=== PATIENT | female | born 1930 | race Caucasian/White ===

== ENCOUNTER → 2018-03-30 | Outpatient (CLI) | payer OTHER | LOC: CFH 10:55 | PROVIDERS: ATTEND Nurse Practitioner Family | DX: M19.042 Primary osteoarthritis, left hand (principal) ==

== ENCOUNTER 2018-04-08 16:47 | Inpatient (IN) | payer OTHER ==
[~2018-04-08] VITALS: Ht 162.6 cm; Wt 49.4 kg
[2018-04-08] MEDS ORDERED: DIPHENHYDRAMINE 50 MG/ML, 1ML IVPush ONE (18:00)
[2018-04-08] MEDS ORDERED: methylPREDNISolone SOD SUCC 125 MG/2 ML IVPush ONE (18:00)
[2018-04-08 18:14] LABS: MEAN CORPUSCULAR HEMOGLOBIN 29.2 pg (27.0-34.8); MEAN CORPUSCULAR HGB CONC 33.3 g/dL (32.4-35.8); MEAN CORPUSCULAR VOLUME 87.7 fL (80-100); MEAN PLATELET VOLUME 7.4 fL (7.4-10.4); PLATELET COUNT 152 x10^3/uL (130-400); RED BLOOD COUNT 5.18 x10^6/uL (3.82-5.3); RED CELL DISTRIBUTION WIDTH 15.5 % (9.6-15.2)
[2018-04-08] MEDS ORDERED: LASIX (18:17)
[2018-04-08] MEDS ORDERED: WARF2.5T73 PO (18:17)
[2018-04-08] MEDS ORDERED: WARF10TA43 PO (18:17)
[2018-04-08] MEDS ORDERED: PRAV40TA2 PO (18:17)
[2018-04-08 18:23] LABS: INTERNATIONAL NORMALIZED RATIO 4.29 (0.93-1.1); PROTHROMBIN TIME 43.4 Seconds (9.6-11.5)
[2018-04-08 18:25] LABS: ALANINE AMINOTRANSFERASE 25 U/L (12-78); ALBUMIN 3.3 g/dL (3.4-5.0); ANION GAP 8 mmol/L (5-15); CALCIUM 8.4 mg/dL (8.5-10.1); CHLORIDE 102 mmol/L (98-107); CREATININE 1.28 mg/dL (0.55-1.02)
[2018-04-08 18:29] LABS: ALKALINE PHOSPHATASE 87 U/L (45-117); BILIRUBIN,TOTAL 0.6 mg/dL (0.2-1.0); TOTAL PROTEIN 7.2 g/dL (6.4-8.2); TROPONIN I < 0.015 ng/mL (0.000-0.045)
[2018-04-08] MEDS ORDERED: VERAPAMIL 2.5 MG/ML, 2ML IVPush ONE (18:30)
[2018-04-08] MEDS ORDERED: methylPREDNISolone SOD SUCC 125 MG/2 ML ONE (18:45)
[2018-04-08] MEDS ORDERED: ACETAMINOPHEN 500 MG TABLET ONE (18:45)
[2018-04-08] MEDS ORDERED: DIPHENHYDRAMINE 50 MG/ML, 1ML ONE (18:45)
[2018-04-08] MEDS ORDERED: VERAPAMIL 2.5 MG/ML, 2ML ONE (18:45)
[2018-04-08 18:48] LABS: BASOPHILS # (AUTO) 0.01 x10^3/uL (0-0.1); BASOPHILS % (AUTO) 0 % (0-1); EOSINOPHILS # (AUTO) 0.17 x10^3/uL (0-0.4); EOSINOPHILS % (AUTO) 2 % (1-7); LYMPHOCYTES # (AUTO) 0.55 x10^3/uL (1-3.4); LYMPHOCYTES % (AUTO) 7 % (22-44); MD SCAN; MONOCYTES # (AUTO) 0.48 x10^3/uL (0.2-0.8); MONOCYTES % (AUTO) 6 % (2-9); NEUTROPHILS # (AUTO) 6.82 x10^3/uL (1.8-6.8); NEUTROPHILS % (AUTO) 85 % (42-75)
[2018-04-08] MEDS ORDERED: ACETAMINOPHEN 500 MG TABLET PO ONE (19:00)
[2018-04-08] MEDS ORDERED: SODIUM CHLORIDE FLUSH 10ML SYR IVF PRN (19:30)
[2018-04-08 19:31] LABS: MICROSCOPIC INDICATED
[2018-04-08 19:43] LABS: CULTURE INDICATED? NO
[2018-04-08] MEDS: SODIUM CHLORIDE 0.9% 1,000 ML IV SCH (20:17)
[2018-04-08] MEDS ORDERED: BISACODYL 10 MG SUPP PR PRN (20:30)
[2018-04-08] MEDS ORDERED: POLYETHYLENE GLYCOL 17 GM PACKET PO PRN (20:30)
[2018-04-08] MEDS ORDERED: ONDANSETRON 2MG/ML, 2ML IVPush PRN (20:30)
[2018-04-08] MEDS: FAMOTIDINE 20 MG TABLET PO SCH (22:46)
[2018-04-08 22:48] VITALS: BP 107/61
[2018-04-09 01:07] VITALS: BP 111/74
[2018-04-09 05:53] LABS: INTERNATIONAL NORMALIZED RATIO 3.36 (0.93-1.1); PROTHROMBIN TIME 34.1 Seconds (9.6-11.5)
[2018-04-09 05:54] VITALS: BP 156/84
[2018-04-09 05:58] LABS: ALANINE AMINOTRANSFERASE 22 U/L (12-78); ALBUMIN 2.7 g/dL (3.4-5.0); ANION GAP 7 mmol/L (5-15); CALCIUM 8.2 mg/dL (8.5-10.1); CHLORIDE 108 mmol/L (98-107); CREATININE 0.79 mg/dL (0.55-1.02)
[2018-04-09 06:03] LABS: ALKALINE PHOSPHATASE 64 U/L (45-117); BASOPHILS # (AUTO) 0.01 x10^3/uL (0-0.1); BASOPHILS % (AUTO) 0 % (0-1); BILIRUBIN,TOTAL 0.7 mg/dL (0.2-1.0); EOSINOPHILS % (AUTO) 0 % (1-7); LYMPHOCYTES # (AUTO) 0.47 x10^3/uL (1-3.4); LYMPHOCYTES % (AUTO) 14 % (22-44); MD NO; MEAN CORPUSCULAR HGB CONC 33.5 g/dL (32.4-35.8); MEAN CORPUSCULAR VOLUME 86.7 fL (80-100); MEAN PLATELET VOLUME 7.7 fL (7.4-10.4); MONOCYTES # (AUTO) 0.13 x10^3/uL (0.2-0.8); MONOCYTES % (AUTO) 4 % (2-9); NEUTROPHILS # (AUTO) 2.68 x10^3/uL (1.8-6.8); NEUTROPHILS % (AUTO) 82 % (42-75); PLATELET COUNT 131 x10^3/uL (130-400); RED BLOOD COUNT 4.54 x10^6/uL (3.82-5.3); RED CELL DISTRIBUTION WIDTH 15.3 % (9.6-15.2); TROPONIN I < 0.015 ng/mL (0.000-0.045)
[2018-04-09 06:49] VITALS: BP 129/78
[2018-04-09] MEDS: SODIUM CHLORIDE 0.9% 1,000 ML IV SCH ×2 (08:26→20:53)
[2018-04-09] MEDS: SENNA/DOCUSATE TABLET PO SCH (08:26)
[2018-04-09] MEDS: FAMOTIDINE 20 MG TABLET PO SCH ×2 (08:26→20:53)
[2018-04-09 11:13] LABS: TROPONIN I < 0.015 ng/mL (0.000-0.045)
[2018-04-09] MEDS: DIPHENHYDRAMINE 25 MG CAPSULE PO PRN ×2 (12:32→20:53)
[2018-04-09 13:57] VITALS: BP 97/58
[2018-04-09] MEDS: CLINDAMYCIN 300 MG CAPSULE PO SCH ×2 (14:09→20:53)
[2018-04-09] MEDS: METOPROLOL TARTRATE 25 MG TABLET PO SCH (17:38)
[2018-04-09 17:39] VITALS: BP 101/64
[2018-04-09 19:25] VITALS: BP 102/59
[2018-04-10 01:51] VITALS: BP 115/75
[2018-04-10] MEDS: ACETAMINOPHEN 325 MG TABLET PO PRN ×2 (02:02→21:15)
[2018-04-10] MEDS: CLINDAMYCIN 300 MG CAPSULE PO SCH ×4 (02:02→20:10)
[2018-04-10] MEDS: METOPROLOL TARTRATE 25 MG TABLET PO SCH ×2 (04:48→17:41)
[2018-04-10 05:10] LABS: BASOPHILS # (AUTO) 0.01 x10^3/uL (0-0.1); BASOPHILS % (AUTO) 0 % (0-1); CHLORIDE 113 mmol/L (98-107); EOSINOPHILS # (AUTO) 0.22 x10^3/uL (0-0.4); EOSINOPHILS % (AUTO) 2 % (1-7); LYMPHOCYTES % (AUTO) 17 % (22-44); MD NO; MEAN CORPUSCULAR HGB CONC 32.9 g/dL (32.4-35.8); MEAN CORPUSCULAR VOLUME 88.2 fL (80-100); MEAN PLATELET VOLUME 7.3 fL (7.4-10.4); MONOCYTES # (AUTO) 0.85 x10^3/uL (0.2-0.8); MONOCYTES % (AUTO) 9 % (2-9); NEUTROPHILS # (AUTO) 6.54 x10^3/uL (1.8-6.8); NEUTROPHILS % (AUTO) 71 % (42-75); PLATELET COUNT 150 x10^3/uL (130-400); RED BLOOD COUNT 4.46 x10^6/uL (3.82-5.3); RED CELL DISTRIBUTION WIDTH 15.4 % (9.6-15.2)
[2018-04-10 05:22] LABS: ALANINE AMINOTRANSFERASE 32 U/L (12-78); ALBUMIN 2.7 g/dL (3.4-5.0); ALKALINE PHOSPHATASE 57 U/L (45-117); ANION GAP 6 mmol/L (5-15); BILIRUBIN,TOTAL 0.7 mg/dL (0.2-1.0); CALCIUM 8.2 mg/dL (8.5-10.1); TOTAL PROTEIN 5.9 g/dL (6.4-8.2)
[2018-04-10 06:52] LABS: INTERNATIONAL NORMALIZED RATIO 2.59 (0.93-1.1); PROTHROMBIN TIME 26.4 Seconds (9.6-11.5)
[2018-04-10 07:30] VITALS: BP 153/76
[2018-04-10] MEDS: FAMOTIDINE 20 MG TABLET PO SCH ×2 (08:01→20:10)
[2018-04-10] MEDS: SENNA/DOCUSATE TABLET PO SCH (08:01)
[2018-04-10] MEDS: SODIUM CHLORIDE 0.9% 1,000 ML IV SCH (10:27)
[2018-04-10 12:39] LABS: TROPONIN I 0.019 ng/mL (0.000-0.045)
[2018-04-10] MEDS ORDERED: FUROSEMIDE 20 MG/2 ML ONE (12:39)
[2018-04-10] MEDS: METOPROLOL 1 MG/ML, 5ML IVPush PRN ×2 (13:22→13:25)
[2018-04-10] MEDS ORDERED: DILTIAZEM 5 MG/ML, 5ML IVPush ONE (13:30)
[2018-04-10 13:49] VITALS: BP 130/81
[2018-04-10 13:58] LABS: LDL/HDL RATIO 1.9 (0.5-3.0)
[2018-04-10] MEDS: FUROSEMIDE 20 MG/2 ML IV SCH (16:49)
[2018-04-10] MEDS ORDERED: FUROSEMIDE 20 MG/2 ML IV SCH (17:00)
[2018-04-10] MEDS ORDERED: WARFARIN 5 MG TABLET PO-COUM ONE (18:00)
[2018-04-10 18:34] LABS: TROPONIN I 0.081 ng/mL (0.000-0.045)
[2018-04-10 19:34] VITALS: BP 112/66
[2018-04-11] VITALS (7 sets, daily range): BP systolic 87–107; BP diastolic 48–88
[2018-04-11] MEDS: CLINDAMYCIN 300 MG CAPSULE PO SCH ×3 (02:00→17:57)
[2018-04-11] MEDS: METOPROLOL TARTRATE 25 MG TABLET PO SCH ×3 (06:23→20:15)
[2018-04-11] MEDS: SENNA/DOCUSATE TABLET PO SCH (09:00)
[2018-04-11 09:37] LABS: BASOPHILS # (AUTO) 0.03 x10^3/uL (0-0.1); BASOPHILS % (AUTO) 0 % (0-1); EOSINOPHILS # (AUTO) 0.04 x10^3/uL (0-0.4); EOSINOPHILS % (AUTO) 0 % (1-7); LYMPHOCYTES # (AUTO) 0.99 x10^3/uL (1-3.4); LYMPHOCYTES % (AUTO) 10 % (22-44); MD NO; MEAN CORPUSCULAR HEMOGLOBIN 29.1 pg (27.0-34.8); MEAN CORPUSCULAR HGB CONC 33.3 g/dL (32.4-35.8); MEAN CORPUSCULAR VOLUME 87.5 fL (80-100); MEAN PLATELET VOLUME 7.5 fL (7.4-10.4); MONOCYTES # (AUTO) 0.84 x10^3/uL (0.2-0.8); MONOCYTES % (AUTO) 8 % (2-9); NEUTROPHILS # (AUTO) 8.38 x10^3/uL (1.8-6.8); NEUTROPHILS % (AUTO) 82 % (42-75); PLATELET COUNT 196 x10^3/uL (130-400); RED BLOOD COUNT 4.88 x10^6/uL (3.82-5.3); RED CELL DISTRIBUTION WIDTH 15.1 % (9.6-15.2)
[2018-04-11 09:47] LABS: ALANINE AMINOTRANSFERASE 57 U/L (12-78); ANION GAP 8 mmol/L (5-15); CALCIUM 8.4 mg/dL (8.5-10.1); CHLORIDE 103 mmol/L (98-107); CREATININE 0.83 mg/dL (0.55-1.02)
[2018-04-11 09:52] LABS: ALKALINE PHOSPHATASE 86 U/L (45-117); BILIRUBIN,TOTAL 1.1 mg/dL (0.2-1.0); TROPONIN I 0.072 ng/mL (0.000-0.045)
[2018-04-11] MEDS: FUROSEMIDE 20 MG/2 ML IV SCH ×2 (09:55→17:57)
[2018-04-11] MEDS: FAMOTIDINE 20 MG TABLET PO SCH ×2 (09:55→20:15)
[2018-04-11 10:53] LABS: INTERNATIONAL NORMALIZED RATIO 3.23 (0.93-1.1); PROTHROMBIN TIME 32.8 Seconds (9.6-11.5)
[2018-04-11] MEDS: POTASSIUM CHLORIDE 20 MEQ TAB.ER.PRT PO SCH (17:58)
[2018-04-11] MEDS ORDERED: WARFARIN 2.5 MG TABLET PO-COUM ONE (18:00)
[2018-04-11] MEDS: ATORVASTATIN 20 MG TABLET PO SCH (20:15)
[2018-04-12] MEDS: CLINDAMYCIN 300 MG CAPSULE PO SCH ×5 (00:59→23:42)
[2018-04-12 01:10] VITALS: BP 105/62
[2018-04-12 05:07] LABS: BASOPHILS # (AUTO) 0.06 x10^3/uL (0-0.1); BASOPHILS % (AUTO) 1 % (0-1); EOSINOPHILS # (AUTO) 0.26 x10^3/uL (0-0.4); EOSINOPHILS % (AUTO) 4 % (1-7); LYMPHOCYTES # (AUTO) 1.99 x10^3/uL (1-3.4); LYMPHOCYTES % (AUTO) 27 % (22-44); MD NO; MEAN CORPUSCULAR HEMOGLOBIN 28.7 pg (27.0-34.8); MEAN CORPUSCULAR HGB CONC 33.2 g/dL (32.4-35.8); MEAN CORPUSCULAR VOLUME 86.6 fL (80-100); MEAN PLATELET VOLUME 7.3 fL (7.4-10.4); MONOCYTES # (AUTO) 0.92 x10^3/uL (0.2-0.8); MONOCYTES % (AUTO) 13 % (2-9); NEUTROPHILS # (AUTO) 4.18 x10^3/uL (1.8-6.8); NEUTROPHILS % (AUTO) 56 % (42-75); PLATELET COUNT 200 x10^3/uL (130-400); RED BLOOD COUNT 4.48 x10^6/uL (3.82-5.3); RED CELL DISTRIBUTION WIDTH 15.3 % (9.6-15.2)
[2018-04-12 05:15] LABS: ANION GAP 5 mmol/L (5-15); CALCIUM 8.6 mg/dL (8.5-10.1); CHLORIDE 106 mmol/L (98-107)
[2018-04-12 05:18] LABS: CREATININE 0.72 mg/dL (0.55-1.02)
[2018-04-12 07:14] VITALS: BP 115/69
[2018-04-12] MEDS: METOPROLOL TARTRATE 25 MG TABLET PO SCH ×2 (07:28→17:50)
[2018-04-12] MEDS: SENNA/DOCUSATE TABLET PO SCH (09:00)
[2018-04-12] MEDS ORDERED: FUROSEMIDE 40 MG TABLET PO SCH (09:00)
[2018-04-12] MEDS ORDERED: POTASSIUM CHLORIDE 20 MEQ TAB.ER.PRT PO SCH (09:30)
[2018-04-12] MEDS: POTASSIUM CHLORIDE 20 MEQ TAB.ER.PRT PO SCH ×2 (09:44→17:28)
[2018-04-12] MEDS: FAMOTIDINE 20 MG TABLET PO SCH ×2 (09:44→20:27)
[2018-04-12 12:17] LABS: INTERNATIONAL NORMALIZED RATIO 3.62 (0.93-1.1); PROTHROMBIN TIME 36.7 Seconds (9.6-11.5)
[2018-04-12 13:32] VITALS: BP 98/64
[2018-04-12 17:42] VITALS: BP 132/77
[2018-04-12 18:25] VITALS: BP 92/59
[2018-04-12] MEDS: ATORVASTATIN 20 MG TABLET PO SCH (20:27)
[2018-04-13 01:35] VITALS: BP 122/76
[2018-04-13 05:06] LABS: INTERNATIONAL NORMALIZED RATIO 3.7 (0.93-1.1); PROTHROMBIN TIME 37.5 Seconds (9.6-11.5)
[2018-04-13 05:10] LABS: ANION GAP 6 mmol/L (5-15); CALCIUM 8.7 mg/dL (8.5-10.1); CHLORIDE 110 mmol/L (98-107); CREATININE 0.65 mg/dL (0.55-1.02)
[2018-04-13 05:32] VITALS: BP 121/78
[2018-04-13] MEDS: CLINDAMYCIN 300 MG CAPSULE PO SCH ×2 (05:32→12:28)
[2018-04-13] MEDS: METOPROLOL TARTRATE 25 MG TABLET PO SCH (05:32)
[2018-04-13 07:20] VITALS: BP 123/72
[2018-04-13] MEDS: FAMOTIDINE 20 MG TABLET PO SCH (07:44)
[2018-04-13] MEDS: SENNA/DOCUSATE TABLET PO SCH (07:44)
[2018-04-13] MEDS ORDERED: REGADENOSON 0.4 MG/5 ML SYRINGE ONE (07:59)
[2018-04-13] MEDS ORDERED: POTASSIUM CHLORIDE 10 MEQ TABLET.ER PO SCH (08:00)
[2018-04-13] MEDS ORDERED: FUROSEMIDE 20 MG TABLET PO SCH (09:00)
[2018-04-13] MEDS ORDERED: POTASSIUM CHLORIDE 20 MEQ TAB.ER.PRT PO SCH (09:00)
[2018-04-13] MEDS: ACETAMINOPHEN 325 MG TABLET PO PRN (11:00)
[2018-04-13 13:32] VITALS: BP 104/68
[2018-04-13] MEDS ORDERED: POTA10TA5 PO (15:41)
[2018-04-13] MEDS ORDERED: CLIN300C8 PO (15:41)
[2018-04-13] MEDS ORDERED: METO25TA35 PO (15:41)
[2018-04-13] MEDS ORDERED: FURO20TA3 PO (15:41)
[2018-04-13] MEDS ORDERED: [UNRECOGNIZED DRUG - REMARK] MC ONE (18:00)
== END 2018-04-13 17:20 | disposition home health service (06) | DRG 871 ==
LOC: ED 20:46 → EDIP 20:57 → 5SO 21:01 → DCLOUNGE 04-13 16:50
PROVIDERS: ADMIT Internal Medicine; ATTEND Internal Medicine
DX: A41.9 Sepsis, unspecified organism (principal); J96.01 Acute respiratory failure with hypoxia; E43 Unspecified severe protein-calorie malnutrition; I50.33 Acute on chronic diastolic (congestive) heart failure; E87.2 Acidosis; D68.69 Other thrombophilia; L03.115 Cellulitis of right lower limb; E87.1 Hypo-osmolality and hyponatremia; I48.2 Chronic atrial fibrillation; L97.329 Non-pressure chronic ulcer of left ankle with unspecified severity; R64 Cachexia; Z68.1 Body mass index [BMI] 19.9 or less, adult; R65.10 Systemic inflammatory response syndrome (SIRS) of non-infectious origin without acute organ dysfunction; E78.5 Hyperlipidemia, unspecified; E87.6 Hypokalemia; H35.30 Unspecified macular degeneration; I25.10 Atherosclerotic heart disease of native coronary artery without angina pectoris; I25.2 Old myocardial infarction; L27.0 Generalized skin eruption due to drugs and medicaments taken internally; Z87.891 Personal history of nicotine dependence; Z79.01 Long term (current) use of anticoagulants; Z66 Do not resuscitate; Z90.710 Acquired absence of both cervix and uterus; T37.0X5A Adverse effect of sulfonamides, initial encounter; Y92.89 Other specified places as the place of occurrence of the external cause
CPT/HCPCS: 36415; 36600; 71045; 71046; 78452; 80048; 80053; 80061; 81001; 82803; 83605; 83735; 83880; 84145; 84443; 84484; 85025; 85610; 85730; 87040; 93005; 93017; 93306; 96374; 96375; J2785; A9502; C9898; J1200; J1940; J2930; J7030; J7512; Q0163

== ENCOUNTER 2019-09-07 14:30 | Outpatient (CLI) | payer MEDICARE, OTHER ==
[~2019-09-07 14:30] MED LIST: CLIN300C8 PO; FURO20TA3 PO; LASIX; METO25TA35 PO; POTA10TA5 PO; PRAV40TA2 PO; WARF10TA43 PO; WARF2.5T32 PO
== END 2019-09-07 23:59 | disposition home or self-care (01) ==
LOC: CVU 14:30
PROVIDERS: ATTEND Surgery
DX: I70.213 Atherosclerosis of native arteries of extremities with intermittent claudication, bilateral legs (principal)
CPT/HCPCS: 93922; 93925

== ENCOUNTER → 2019-10-11 | Outpatient (CLI) | payer MEDICARE, OTHER | END | disposition home or self-care (01) | LOC: CVU 13:43 | PROVIDERS: ATTEND Surgery | DX: M79.604 Pain in right leg (principal); M79.605 Pain in left leg; F10.20 Alcohol dependence, uncomplicated; Z87.891 Personal history of nicotine dependence | CPT/HCPCS: 93970 ==